=== PATIENT | male | born 1940 | race Hispanic/Latino ===

== ENCOUNTER 2020-01-22 05:28 | Observation (INO) | payer OTHER ==
[2020-01-22] VITALS (18 sets, daily range): BP systolic 98–136; BP diastolic 53–73
[~2020-01-22] VITALS: Ht 165.1 cm; Wt 75.4 kg
[~2020-01-22 05:28] MED LIST: AEC81 PO; ATEN100T PO; CLOP75TA14 PO; DOXA4TAB3 PO; FISH1CAP16 PO; GEMF600T5 PO; GLIP10TA9 PO; GLUC-145 PO; HYDR12.54 PO; METF-446 PO; MULT-660 PO; OMEP20CA12 PO; PANT40TA PO; QUIN40TA19 PO; SIMV40TA59 PO
[2020-01-22] MEDS ORDERED: SODIUM CHLORIDE 0.9% 1000ML 1,000 ML IV ONE (05:59)
[2020-01-22 06:10] LABS: BASOPHILS % (AUTO) 0.4 % (0.0-5.0); EOSINOPHILS % (AUTO) 1.8 % (0.0-8.0); HEMATOCRIT 28.5 % (42-54); LYMPHOCYTES % (AUTO) 19.4 % (21.0-51.0); MEAN CORPUSCULAR HEMOGLOBIN 31.2 pg (27.0-33.0); MEAN CORPUSCULAR HGB CONC 34.4 g/dL (32.0-36.0); MEAN CORPUSCULAR VOLUME 90.8 fL (79-99); MONOCYTES % (AUTO) 8.1 % (3.0-13.0); PLATELET COUNT (AUTO) 168 K/uL (130-400); RED BLOOD CELL COUNT(AUTO) 3.14 MIL/uL (4.50-6.20); RED CELL DISTRIBUTION WIDTH 11.9 % (11.0-15.5); WHITE BLOOD COUNT (AUTO) 7.6 K/uL (4.8-10.8)
[2020-01-22 06:28] LABS: INR 0.98 (0.85-1.15); PARTIAL THROMBOPLASTIN TIME 32.4 SEC (26.3-35.5); PROTHROMBIN TIME 10.6 SEC (9.6-11.6)
[2020-01-22 06:30] LABS: B-TYPE NATRIURETIC PEPTIDE 58 pg/mL (0-100)
[2020-01-22 06:31] LABS: ALBUMIN 2.4 g/dL (3.5-5.0); BILIRUBIN,TOTAL 0.4 mg/dL (0.2-1.0); CREATININE 2.8 mg/dL (0.5-1.5); POTASSIUM 3.6 mmol/L (3.5-5.1); TOTAL PROTEIN, SERUM 5.9 g/dL (6.0-8.3)
[2020-01-22] MEDS ORDERED: OCTREOTIDE ACETATE 500 MCG in SODIUM CHLORIDE 0.9% 97.5 ML IV SCH (07:45)
[2020-01-22] MEDS ORDERED: PANTOPRAZOLE SODIUM 80 MG in NS 100ML IVP SCH (07:45)
[2020-01-22] MEDS ORDERED: EPHEDRINE SULFATE 50 MG/ML AMPULE ONE (13:05)
[2020-01-22] MEDS ORDERED: PHENYLEPHRINE HCL 10 MG/ML 1ML VIAL IV ONE (13:09)
[2020-01-22] MEDS ORDERED: POTASSIUM CHLORIDE 10% ELIXIR 20 MEQ/15 ML UDCUP PO PRN (16:45)
[2020-01-22] MEDS ORDERED: ONDANSETRON HCL 4 MG/2 ML VIAL IVP PRN (16:45)
[2020-01-22] MEDS ORDERED: GLUCAGON 1MG KIT 1 MG ML IM PRN (16:45)
[2020-01-22] MEDS ORDERED: IPRATROPIUM/ALBUTEROL SULFATE 3 ML SOLUTION IH PRN (16:45)
[2020-01-22] MEDS ORDERED: LIDOCAINE HCL-MPF 1% 2ML VIAL IV PRN (16:45)
[2020-01-22] MEDS ORDERED: LACTULOSE 20 GM/30 ML UDCUP PO PRN (16:45)
[2020-01-22] MEDS ORDERED: DEXTROSE 50%-WATER 50 ML DISP.SYRIN IV PRN (16:45)
[2020-01-22] MEDS ORDERED: HYDRALAZINE HCL 20 MG/ML VIAL IV PRN (16:45)
[2020-01-22] MEDS ORDERED: ACETAMINOPHEN-CODEINE 300/30MG TAB PO PRN ×2 (16:45)
[2020-01-22] MEDS ORDERED: POTASSIUM CHLORIDE 20MEQ/100ML 100 ML IV PRN (16:45)
[2020-01-22] MEDS ORDERED: ACETAMINOPHEN 325 MG TAB PO PRN (16:45)
[2020-01-22] MEDS ORDERED: INSULIN HUMULIN R 100 UNIT/ML 3ML ONE (17:18)
[2020-01-22] MEDS: DOXAZOSIN MESYLATE 2 MG TABLET PO SCH (20:16)
[2020-01-22] MEDS: HYDROCHLOROTHIAZIDE 25 MG TABLET PO SCH (20:16)
[2020-01-22] MEDS: QUINAPRIL 40 MG PO SCH (20:16)
[2020-01-22] MEDS: GEMFIBROZIL 600 MG TABLET PO SCH (20:16)
[2020-01-22] MEDS: INSULIN HUMULIN R 100 UNIT/ML 3ML SQ SCH (20:40)
[2020-01-22] MEDS ORDERED: ATENOLOL 50 MG TABLET PO SCH (21:00)
[2020-01-22] MEDS ORDERED: QUINAPRIL HCL 40 MG PO SCH (21:00)
[2020-01-22] MEDS ORDERED: SIMVASTATIN 20 MG TABLET PO SCH (21:00)
[2020-01-22] MEDS ORDERED: NON-FORMULARY MEDICATION 1 EACH (Simvastatin (Zocor) 40 MG) PO SCH (21:00)
[2020-01-22] MEDS ORDERED: NON-FORMULARY MEDICATION 1 EACH (Doxazosin Mesylate 4 MG) PO SCH (21:00)
[2020-01-22] MEDS ORDERED: NON-FORMULARY MEDICATION 1 EACH (Hydrochlorothiazide 12.5 MG) PO SCH (21:00)
[2020-01-22] MEDS ORDERED: NON-FORMULARY MEDICATION 1 EACH (Atenolol 100 MG) PO SCH (21:00)
[2020-01-23 04:00] VITALS: BP 116/49
[2020-01-23 05:25] LABS: HEMATOCRIT 24.7 % (42-54); MEAN CORPUSCULAR HGB CONC 33.6 g/dL (32.0-36.0); MEAN CORPUSCULAR VOLUME 92.2 fL (79-99); PLATELET COUNT (AUTO) 153 K/uL (130-400); RED BLOOD CELL COUNT(AUTO) 2.68 MIL/uL (4.50-6.20); RED CELL DISTRIBUTION WIDTH 11.8 % (11.0-15.5); WHITE BLOOD COUNT (AUTO) 7.5 K/uL (4.8-10.8)
[2020-01-23 05:38] LABS: CREATININE 2.5 mg/dL (0.5-1.5); POTASSIUM 3.2 mmol/L (3.5-5.1)
[2020-01-23] MEDS: INSULIN HUMULIN R 100 UNIT/ML 3ML SQ SCH ×2 (06:02→12:15)
[2020-01-23] MEDS: POTASSIUM CHLORIDE 20 MEQ ERTAB PO PRN ×3 (06:25→12:16)
[2020-01-23 08:16] VITALS: BP 128/63
[2020-01-23] MEDS ORDERED: ASPIRIN 81 MG EC TAB PO SCH (09:00)
[2020-01-23] MEDS: QUINAPRIL 40 MG PO SCH (09:00)
[2020-01-23] MEDS: HYDROCHLOROTHIAZIDE 25 MG TABLET PO SCH (09:00)
[2020-01-23] MEDS: GEMFIBROZIL 600 MG TABLET PO SCH (09:00)
[2020-01-23] MEDS: DOXAZOSIN MESYLATE 2 MG TABLET PO SCH (09:27)
[2020-01-23] MEDS ORDERED: PANT40TA PO (10:21)
[2020-01-23 11:32] VITALS: BP 125/60
[2020-01-30] MEDS ORDERED: DOXA8TAB81 PO (18:18)
[2020-01-30] MEDS ORDERED: GLIP10TA9 PO (18:18)
[2020-01-30] MEDS ORDERED: LEVO5TAB29 PO (18:18)
[2020-01-30] MEDS ORDERED: LEVO25TA54 PO (18:21)
[2020-01-30] MEDS ORDERED: ROSU20TA31 PO (18:21)
[2020-02-01] MEDS ORDERED: PANT40TA PO (16:32)
[2020-02-01] MEDS ORDERED: SUCR1TAB PO (16:32)
== END 2020-01-23 14:30 | disposition home or self-care (01) ==
LOC: EDH 05:28 → EDHIP 07:22 → 3CH 14:16
PROVIDERS: ADMIT Internal Medicine; ATTEND Internal Medicine
DX: K26.4 Chronic or unspecified duodenal ulcer with hemorrhage (principal); K21.0 Gastro-esophageal reflux disease with esophagitis; K29.70 Gastritis, unspecified, without bleeding; R55 Syncope and collapse; E11.22 Type 2 diabetes mellitus with diabetic chronic kidney disease; I12.9 Hypertensive chronic kidney disease with stage 1 through stage 4 chronic kidney disease, or unspecified chronic kidney disease; N18.4 Chronic kidney disease, stage 4 (severe); I25.10 Atherosclerotic heart disease of native coronary artery without angina pectoris; E07.9 Disorder of thyroid, unspecified; Z79.899 Other long term (current) drug therapy; Z79.82 Long term (current) use of aspirin
CPT/HCPCS: 36415 ×2; 43239; 43255; 71045; 80048; 80053; 82270; 82948 ×4; 83880; 84132; 85025; 85027; 85610; 85730; 86850; 86900; 86901; 88305; 88342; 94664; 96365; 96366; 99284; A4222; A4223; A4606; A4620; C9113 ×3; G0378 ×18; J1815 ×2; J2354; J2370; J2704; J3490; J7030 ×2; 96372

== ENCOUNTER → 2021-09-28 | Outpatient (CLI) | payer OTHER ==
[~2021-09-28] MED LIST changes: -AEC81 PO; -CLOP75TA14 PO; -FISH1CAP16 PO; -GEMF600T5 PO; +GEMF600T89 PO; -HYDR12.54 PO; +LEVO25TA54 PO; +LEVO5TAB29 PO; -METF-446 PO; -MULT-660 PO; -OMEP20CA12 PO; -QUIN40TA19 PO; +ROSU20TA31 PO; +SUCR1TAB PO
== END | disposition home or self-care (01) ==
LOC: RAH 11:56
PROVIDERS: ATTEND Internal Medicine
DX: K80.20 Calculus of gallbladder without cholecystitis without obstruction (principal); K57.90 Diverticulosis of intestine, part unspecified, without perforation or abscess without bleeding; N28.1 Cyst of kidney, acquired; K80.80 Other cholelithiasis without obstruction; K40.20 Bilateral inguinal hernia, without obstruction or gangrene, not specified as recurrent
CPT/HCPCS: 74176

== ENCOUNTER → 2023-01-18 | Outpatient (CLI) | payer OTHER ==
[~2023-01-18] MED LIST changes: +AMIO200T44 PO; +APIX2.5T PO; +ASPI-1005 PO; -ATEN100T PO; +ATOR40TA69 PO; +CHOL2000 PO; +DOCU100C33 PO; -DOXA4TAB3 PO; +FERR-82 PO; +FISH1CAP63 PO; +FOLI400T4 PO; -GEMF600T89 PO; -GLUC-145 PO; -LEVO5TAB29 PO; +METO25TA3 PO; -PANT40TA PO; +PANT40TA54 PO; -ROSU20TA31 PO; -SIMV40TA59 PO; -SUCR1TAB PO; +TICA90TA PO
== END | disposition home or self-care (01) ==
LOC: LAB 13:42
PROVIDERS: ATTEND Internal Medicine Cardiovascular Disease
DX: I25.10 Atherosclerotic heart disease of native coronary artery without angina pectoris (principal); R06.00 Dyspnea, unspecified; Z95.5 Presence of coronary angioplasty implant and graft
CPT/HCPCS: 36415; 83880

== ENCOUNTER → 2023-02-17 | Outpatient (CLI) | payer OTHER | END | disposition home or self-care (01) | LOC: SHCH 07:44 | PROVIDERS: ATTEND Internal Medicine Cardiovascular Disease | DX: I08.8 Other rheumatic multiple valve diseases (principal); I27.20 Pulmonary hypertension, unspecified; I11.9 Hypertensive heart disease without heart failure; I25.10 Atherosclerotic heart disease of native coronary artery without angina pectoris; E11.9 Type 2 diabetes mellitus without complications; E78.5 Hyperlipidemia, unspecified; Z95.5 Presence of coronary angioplasty implant and graft | CPT/HCPCS: 93306 ==

== ENCOUNTER → 2023-03-16 | Outpatient (CLI) | payer OTHER ==
[~2023-03-16] MED LIST changes: +ALBUTEROL 0.083% 2.5 MG/3 ML INH IH ONE
== END | disposition home or self-care (01) ==
LOC: RESP 08:38
PROVIDERS: ATTEND Internal Medicine Cardiovascular Disease
DX: R06.00 Dyspnea, unspecified (principal)
CPT/HCPCS: 94060; 94727; 94729

== ENCOUNTER 2023-07-12 06:13 | Day surgery (SDC) | payer OTHER ==
[2023-07-07 10:49] VITALS: BP 138/79; PULSE 90; RESP 18
[2023-07-07 10:52] LABS: BASOPHILS # (AUTO) 0.03 K/uL (0.00-0.20); BASOPHILS % (AUTO) 0.7 % (0.0-5.0); EOSINOPHILS # (AUTO) 0.22 K/uL (0.00-0.70); HEMATOCRIT 36.1 % (42-54); IMMATURE GRANULOCYTE ABSOLUTE 0.02 K/uL (0-1); LYMPHOCYTES # (AUTO) 0.8 K/uL (1.0-4.8); LYMPHOCYTES % (AUTO) 17.6 % (21.0-51.0); MEAN CORPUSCULAR HEMOGLOBIN 33.7 pg (27.0-33.0); MEAN CORPUSCULAR HGB CONC 31.3 g/dL (32.0-36.0); MEAN CORPUSCULAR VOLUME 107.8 fL (79-99); MONOCYTES # (AUTO) 0.4 K/uL (0.1-1.0); NEUTROPHILS % (AUTO) 68.2 % (40.0-77.0); PLATELET COUNT (AUTO) 80 K/uL (130-400); RED BLOOD CELL COUNT(AUTO) 3.35 MIL/uL (4.50-6.20); RED CELL DISTRIBUTION WIDTH 14.6 % (11.0-15.5); WHITE BLOOD COUNT (AUTO) 4.4 K/uL (4.8-10.8)
[2023-07-07 11:01] LABS: CREATININE 3.2 mg/dL (0.5-1.5); POTASSIUM 3.7 mmol/L (3.5-5.1)
[2023-07-07 11:37] LABS: INR 1.03 (0.85-1.15); PROTHROMBIN TIME 11.9 SEC (9.6-11.6)
[2023-07-07 11:39] LABS: PARTIAL THROMBOPLASTIN TIME 33.9 SEC (26.3-35.5)
[~2023-07-12] VITALS: Ht 165.1 cm; Wt 65.1 kg
[2023-07-12] VITALS (10 sets, daily range): BP systolic 126–150; BP diastolic 59–87; PULSE 60–92; RESP 15–18
[~2023-07-12 06:13] MED LIST changes: -ALBUTEROL 0.083% 2.5 MG/3 ML INH IH ONE; -AMIO200T44 PO; -ASPI-1005 PO; +CLOP75TA32 PO; -FERR-82 PO; -LEVO25TA54 PO; +LEVO75TA10 PO; +LIRA0.6P SQ; +LORA10TA7 PO; +METO-391 PO; -METO25TA3 PO; +SACU1TAB7 PO; -TICA90TA PO; +TORS20TA4 PO; +VITA400T9 PO
[2023-07-12] MEDS ORDERED: 0.9%NACL 1000ML 1,000 ML IV ONE (06:31)
[2023-07-12] MEDS ORDERED: LIDOCAINE HCL 1% MDV 50ML VIAL ONE (07:27)
[2023-07-12] MEDS ORDERED: MEPERIDINE-PF 25 MG/ML SYG ONE ×2 (07:27→07:46)
[2023-07-12] MEDS ORDERED: CEFAZOLIN SODIUM 1 GM VIAL ONE (07:28)
[2023-07-12] MEDS ORDERED: IOHEXOL-350 50ML VIAL IV ONE (07:28)
[2023-07-12] MEDS ORDERED: MIDAZOLAM HCL 1 MG/ML 2ML VIAL ONE ×2 (07:28→07:46)
[2023-07-12] MEDS ORDERED: BUPIVACAINE/PF 0.25% 30ML VIAL IJ ONE (07:28)
[2023-07-12] MEDS ORDERED: SODIUM BICARB 50MEQ 50ML VIAL 50 ML ONE (07:31)
[2023-07-12] MEDS ORDERED: BACITRACIN 1 EACH PACKET TP ONE (08:59)
[2023-07-12] MEDS ORDERED: ACETAMINOPHEN WITH CODEINE 1 TAB TAB PO PRN ×2 (09:30)
[2023-07-12] MEDS ORDERED: DEXTROSE 50%-WATER 50 ML DISP.SYRIN IV PRN (09:30)
[2023-07-12] MEDS ORDERED: ONDANSETRON 4MG INJ IV PRN (09:30)
[2023-07-12] MEDS ORDERED: INSULIN HUMULIN R 100 UNIT/ML 3ML SQ SCH (11:30)
== END 2023-07-12 15:10 | disposition home or self-care (01) ==
LOC: DAH 06:13
PROVIDERS: ATTEND Internal Medicine Cardiovascular Disease
DX: I25.5 Ischemic cardiomyopathy (principal); E11.22 Type 2 diabetes mellitus with diabetic chronic kidney disease; I13.2 Hypertensive heart and chronic kidney disease with heart failure and with stage 5 chronic kidney disease, or end stage renal disease; N18.6 End stage renal disease; I50.42 Chronic combined systolic (congestive) and diastolic (congestive) heart failure; I25.10 Atherosclerotic heart disease of native coronary artery without angina pectoris; I25.2 Old myocardial infarction; M19.90 Unspecified osteoarthritis, unspecified site; Z99.2 Dependence on renal dialysis; Z98.890 Other specified postprocedural states; Z95.5 Presence of coronary angioplasty implant and graft; Z82.49 Family history of ischemic heart disease and other diseases of the circulatory system; Z79.01 Long term (current) use of anticoagulants; Z79.899 Other long term (current) drug therapy
CPT/HCPCS: 80048; 85025; 85610; 85730; 36415; 93005; 33249; 82948 ×2; 71045; C1721; C1895 ×2; C1894; J0690; J7030; J3490 ×3; J2250 ×2; J2175 ×2; Q9967; A4215; A4222; A4221; A4663; A4216; A4606; A4223 ×3; 99156; 99157

== ENCOUNTER 2023-12-19 07:19 | Day surgery (SDC) | payer OTHER ==
[2023-12-13 10:25] VITALS: BP 155/87; PULSE 67; RESP 18
[2023-12-13 10:35] LABS: BASOPHILS # (AUTO) 0.03 K/uL (0.00-0.20); BASOPHILS % (AUTO) 0.7 % (0.0-5.0); EOSINOPHILS # (AUTO) 0.17 K/uL (0.00-0.70); EOSINOPHILS % (AUTO) 3.7 % (0.0-8.0); HEMATOCRIT 39.6 % (42-54); IMMATURE GRANULOCYTE ABSOLUTE 0.02 K/uL (0-1); LYMPHOCYTES # (AUTO) 0.9 K/uL (1.0-4.8); LYMPHOCYTES % (AUTO) 19.3 % (21.0-51.0); MEAN CORPUSCULAR HEMOGLOBIN 34.6 pg (27.0-33.0); MEAN CORPUSCULAR HGB CONC 33.6 g/dL (32.0-36.0); MEAN CORPUSCULAR VOLUME 103.1 fL (79-99); MONOCYTES # (AUTO) 0.4 K/uL (0.1-1.0); MONOCYTES % (AUTO) 9.5 % (3.0-13.0); NEUTROPHILS # (AUTO) 3.1 K/uL (1.8-7.7); NEUTROPHILS % (AUTO) 66.4 % (40.0-77.0); PLATELET COUNT (AUTO) 101 K/uL (130-400); RED BLOOD CELL COUNT(AUTO) 3.84 MIL/uL (4.50-6.20); RED CELL DISTRIBUTION WIDTH 12.7 % (11.0-15.5); WHITE BLOOD COUNT (AUTO) 4.6 K/uL (4.8-10.8)
[2023-12-13 10:45] LABS: PROTHROMBIN TIME 11.6 SEC (9.6-11.6)
[2023-12-13 10:46] LABS: PARTIAL THROMBOPLASTIN TIME 35.3 SEC (26.3-35.5)
[2023-12-13 11:14] LABS: POTASSIUM 4.8 mmol/L (3.5-5.1)
[2023-12-19] VITALS (17 sets, daily range): BP systolic 111–144; BP diastolic 55–82; PULSE 57–61; RESP 9–16
[~2023-12-19] VITALS: Ht 165.1 cm; Wt 68.9 kg
[~2023-12-19 07:19] MED LIST changes: -DOCU100C33 PO; +DOCU250C14 PO; -FOLI400T4 PO; +GLUCOSAMINE/CHON PO; -LIRA0.6P SQ; +SITA25TA5 PO; +VITA1CAP50 PO; -VITA400T9 PO; +VITAMIN E PO
[2023-12-19] MEDS ORDERED: LIDOCAINE HCL 1% MDV 50ML VIAL ONE (07:32)
[2023-12-19 08:15] LABS: CREATININE 6.2 mg/dL (0.5-1.5); POTASSIUM 4.8 mmol/L (3.5-5.1)
[2023-12-19] MEDS: 0.9% NACL 500ML IV.SOLN 500 ML IV ONE (08:23)
[2023-12-19] MEDS ORDERED: LIDOCAINE PF 100MG/5ML (2%) SYRINGE 5ML ONE (12:19)
[2023-12-19] MEDS ORDERED: GLYCOPYRROLATE 0.2 MG/ML 5 ML VIAL ONE (12:20)
[2023-12-19] MEDS ORDERED: FENTANYL CITRATE PF 50 MCG/1 ML 2ML VIAL ONE (12:20)
[2023-12-19] MEDS ORDERED: ROCURONIUM BROMIDE 10MG/1ML 5ML VL ONE (12:20)
[2023-12-19] MEDS ORDERED: PROPOFOL 10 MG/ML 20ML VIAL IV ONE (12:20)
[2023-12-19] MEDS ORDERED: MIDAZOLAM HCL 1 MG/ML 2ML VIAL ONE (12:32)
[2023-12-19] MEDS ORDERED: EPHEDRINE SULFATE 50 MG/ML AMPULE ONE (13:36)
[2023-12-19] MEDS: BUPIVACAINE/PF 0.25% 30ML VIAL IJ ONE (13:51)
[2023-12-19] MEDS: CEFAZOLIN SODIUM 2 GM VIAL ONE (13:51)
[2023-12-19] MEDS ORDERED: NEOSTIGMINE METHYLSULFATE 1MG/ML IV ONE (14:19)
== END 2023-12-19 17:05 | disposition home or self-care (01) ==
LOC: DAH 07:19
PROVIDERS: ATTEND Student in an Organized Health Care Education/Training Program
DX: E11.22 Type 2 diabetes mellitus with diabetic chronic kidney disease (principal); I13.11 Hypertensive heart and chronic kidney disease without heart failure, with stage 5 chronic kidney disease, or end stage renal disease; N18.6 End stage renal disease; K21.9 Gastro-esophageal reflux disease without esophagitis; Z79.899 Other long term (current) drug therapy; Z95.5 Presence of coronary angioplasty implant and graft; Z82.49 Family history of ischemic heart disease and other diseases of the circulatory system; Z98.890 Other specified postprocedural states; Z99.2 Dependence on renal dialysis
CPT/HCPCS: 80048 ×2; 85025; 85610; 85730; 86850 ×2; 86900 ×2; 86901 ×2; 86870 ×2; 36415 ×2; 93005; 36821; 82948 ×2; A6260; A4663; J7040; J3010; J0665; J3490 ×3; J2001; J2250; J2704; J2710; J1644; J0690; A4649 ×2; C1713 ×2; A4215; A4223; A4222; A4221; A4600; G0168

== ENCOUNTER → 2024-01-28 | Outpatient (CLI) | payer OTHER | LOC: SHCH 12:35 | PROVIDERS: ATTEND Internal Medicine Cardiovascular Disease | DX: I48.0 Paroxysmal atrial fibrillation (principal) | CPT/HCPCS: 93306 ==

== ENCOUNTER 2024-02-14 10:06 | Emergency (ER) | payer OTHER ==
[~2024-02-14] VITALS: Ht 167.6 cm; Wt 72.1 kg
[2024-02-14 11:03] LABS: BASOPHILS # (AUTO) 0.03 K/uL (0.00-0.20); BASOPHILS % (AUTO) 0.5 % (0.0-5.0); EOSINOPHILS # (AUTO) 0.22 K/uL (0.00-0.70); EOSINOPHILS % (AUTO) 3.7 % (0.0-8.0); HEMATOCRIT 37.7 % (42-54); IMMATURE GRANULOCYTE ABSOLUTE 0.01 K/uL (0-1); LYMPHOCYTES # (AUTO) 1.7 K/uL (1.0-4.8); MEAN CORPUSCULAR HEMOGLOBIN 33.2 pg (27.0-33.0); MEAN CORPUSCULAR HGB CONC 33.2 g/dL (32.0-36.0); MEAN CORPUSCULAR VOLUME 100.3 fL (79-99); MONOCYTES # (AUTO) 0.6 K/uL (0.1-1.0); MONOCYTES % (AUTO) 10.7 % (3.0-13.0); NEUTROPHILS # (AUTO) 3.3 K/uL (1.8-7.7); NEUTROPHILS % (AUTO) 55.9 % (40.0-77.0); PLATELET COUNT (AUTO) 104 K/uL (130-400); RED BLOOD CELL COUNT(AUTO) 3.76 MIL/uL (4.50-6.20); RED CELL DISTRIBUTION WIDTH 13.3 % (11.0-15.5); WHITE BLOOD COUNT (AUTO) 5.9 K/uL (4.8-10.8)
[2024-02-14 11:10] LABS: CREATININE 3.7 mg/dL (0.5-1.3); POTASSIUM 4.2 mmol/L (3.5-5.1)
[2024-02-14 11:15] LABS: ALBUMIN 3.7 g/dL (3.5-5.0); BILIRUBIN,TOTAL 0.7 mg/dL (0.2-1.0); TOTAL PROTEIN, SERUM 7.8 g/dL (6.0-8.3)
[2024-02-14 12:34] VITALS: BP 157/64; PULSE 64; RESP 16; O2SAT 98
[2024-02-14] MEDS ORDERED: MECL-302 PO (12:54)
== END 2024-02-14 13:05 | disposition home or self-care (01) ==
LOC: EDH 10:06
DX: I12.0 Hypertensive chronic kidney disease with stage 5 chronic kidney disease or end stage renal disease (principal); E11.22 Type 2 diabetes mellitus with diabetic chronic kidney disease; N18.6 End stage renal disease; H81.10 Benign paroxysmal vertigo, unspecified ear; E78.00 Pure hypercholesterolemia, unspecified; I48.91 Unspecified atrial fibrillation; I25.2 Old myocardial infarction; Z79.01 Long term (current) use of anticoagulants; Z99.2 Dependence on renal dialysis; Z79.02 Long term (current) use of antithrombotics/antiplatelets; Z79.84 Long term (current) use of oral hypoglycemic drugs; Z79.899 Other long term (current) drug therapy; Z95.5 Presence of coronary angioplasty implant and graft; Z95.810 Presence of automatic (implantable) cardiac defibrillator
CPT/HCPCS: 36415; 71045; 80053; 82948; 84484; 85025; 93005

== ENCOUNTER → 2024-02-20 | Outpatient (CLI) | payer OTHER ==
[~2024-02-20] MED LIST changes: +MECL-302 PO
[2024-02-20 09:27] LABS: INR 0.95 (0.85-1.15); PROTHROMBIN TIME 11.3 SEC (9.6-11.6)
[2024-02-20 09:29] LABS: PARTIAL THROMBOPLASTIN TIME 32.6 SEC (26.3-35.5)
== END | disposition home or self-care (01) ==
LOC: RAH 08:40
PROVIDERS: ATTEND Student in an Organized Health Care Education/Training Program
DX: N18.6 End stage renal disease (principal); L76.34 Postprocedural seroma of skin and subcutaneous tissue following other procedure
CPT/HCPCS: 36415; 76882; 85610; 85730

== ENCOUNTER 2024-04-20 07:18 | Day surgery (SDC) | payer OTHER ==
[2024-04-17 11:04] LABS: INR <= 0.93 (0.85-1.15); PROTHROMBIN TIME 10.9 SEC (9.6-11.6)
[2024-04-17 11:05] LABS: PARTIAL THROMBOPLASTIN TIME 30.2 SEC (26.3-35.5)
[2024-04-17 11:33] VITALS: BP 151/90; PULSE 77; RESP 18
[2024-04-17 11:52] LABS: BASOPHILS # (AUTO) 0.04 K/uL (0.00-0.20); BASOPHILS % (AUTO) 0.7 % (0.0-5.0); EOSINOPHILS # (AUTO) 0.13 K/uL (0.00-0.70); EOSINOPHILS % (AUTO) 2.3 % (0.0-8.0); HEMATOCRIT 38.6 % (42-54); IMMATURE GRANULOCYTE ABSOLUTE 0.01 K/uL (0-1); LYMPHOCYTES # (AUTO) 1.1 K/uL (1.0-4.8); LYMPHOCYTES % (AUTO) 19.9 % (21.0-51.0); MEAN CORPUSCULAR HEMOGLOBIN 33.8 pg (27.0-33.0); MEAN CORPUSCULAR HGB CONC 32.9 g/dL (32.0-36.0); MEAN CORPUSCULAR VOLUME 102.7 fL (79-99); MONOCYTES # (AUTO) 0.6 K/uL (0.1-1.0); MONOCYTES % (AUTO) 10.1 % (3.0-13.0); NEUTROPHILS # (AUTO) 3.8 K/uL (1.8-7.7); NEUTROPHILS % (AUTO) 66.8 % (40.0-77.0); PLATELET COUNT (AUTO) 108 K/uL (130-400); RED BLOOD CELL COUNT(AUTO) 3.76 MIL/uL (4.50-6.20); RED CELL DISTRIBUTION WIDTH 12.9 % (11.0-15.5); WHITE BLOOD COUNT (AUTO) 5.7 K/uL (4.8-10.8)
[2024-04-17 12:09] LABS: ALBUMIN 3.4 g/dL (3.5-5.0); BILIRUBIN,TOTAL 0.5 mg/dL (0.2-1.0); CREATININE 4.3 mg/dL (0.5-1.3); POTASSIUM 4.5 mmol/L (3.5-5.1); TOTAL PROTEIN, SERUM 7.9 g/dL (6.0-8.3)
[~2024-04-20] VITALS: Ht 165.1 cm; Wt 70.2 kg
[2024-04-20] VITALS (13 sets, daily range): BP systolic 114–147; BP diastolic 50–81; PULSE 63–86; RESP 14–18
[~2024-04-20 07:18] MED LIST changes: +DOCU100C33 PO; -DOCU250C14 PO; +GLUC1TAB22 PO; -GLUCOSAMINE/CHON PO; +LEVO50CA4 PO; -LEVO75TA10 PO; -MECL-302 PO; +VITA-348 PO; -VITAMIN E PO
[2024-04-20] MEDS ORDERED: LIDOCAINE HCL 1% 20 ML VIAL ONE (07:59)
[2024-04-20] MEDS ORDERED: BUPIVACAINE/PF 0.25% 30ML VIAL IJ ONE (07:59)
[2024-04-20 08:03] LABS: CREATININE 3.3 mg/dL (0.5-1.3); POTASSIUM 3.7 mmol/L (3.5-5.1)
[2024-04-20] MEDS ORDERED: MIDAZOLAM HCL 1 MG/ML 2ML VIAL ONE (09:37)
[2024-04-20] MEDS ORDERED: LIDOCAINE PF 100MG/5ML (2%) SYRINGE 5ML ONE (09:38)
[2024-04-20] MEDS ORDERED: PROPOFOL 10 MG/ML 20ML VIAL IV ONE (09:39)
[2024-04-20] MEDS ORDERED: FENTANYL CITRATE PF 50 MCG/1 ML 2ML VIAL ONE (09:39)
[2024-04-20] MEDS ORDERED: ROCURONIUM BROMIDE 10MG/1ML 5ML VL ONE (09:39)
[2024-04-20] MEDS ORDERED: EPHEDRINE SULFATE 50 MG/ML AMPULE ONE (09:45)
[2024-04-20] MEDS: CEFAZOLIN SODIUM 2 GM VIAL ONE (09:59)
[2024-04-20] MEDS: 0.9%NACL 1000ML 1,000 ML IV ONE (09:59)
[2024-04-20] MEDS ORDERED: PHENYLEPHRINE HCL 10 MG/ML 1ML VIAL IV ONE (10:04)
[2024-04-20] MEDS ORDERED: CEFAZOLIN SODIUM 1 GM VIAL ONE (10:23)
[2024-04-20] MEDS ORDERED: DEXAMETHASONE SOD PHOSPHATE 10MG/ML 1ML VIAL ONE (10:31)
[2024-04-20] MEDS ORDERED: ONDANSETRON 4MG INJ ONE (10:32)
[2024-04-20] MEDS: HEPARIN 5,000 UNIT VIAL IRRIG ONE (10:49)
[2024-04-20] MEDS ORDERED: GLYCOPYRROLATE 0.2 MG/ML 5 ML VIAL ONE (12:11)
[2024-04-20] MEDS ORDERED: PROTAMINE SULFATE 10 MG/ML 5 ML VIAL ONE (12:11)
[2024-04-20] MEDS ORDERED: NEOSTIGMINE METHYLSULFATE 1MG/ML IV ONE (12:11)
[2024-04-20] MEDS: MEPERIDINE-PF 25 MG/ML SYG ONE (13:01)
== END 2024-04-20 14:00 | disposition home or self-care (01) ==
LOC: DAH 07:18
PROVIDERS: ATTEND Student in an Organized Health Care Education/Training Program
DX: I13.11 Hypertensive heart and chronic kidney disease without heart failure, with stage 5 chronic kidney disease, or end stage renal disease (principal); E11.22 Type 2 diabetes mellitus with diabetic chronic kidney disease; N18.6 End stage renal disease; D64.9 Anemia, unspecified; I25.10 Atherosclerotic heart disease of native coronary artery without angina pectoris; Z88.8 Allergy status to other drugs, medicaments and biological substances; Z82.5 Family history of asthma and other chronic lower respiratory diseases; Z83.3 Family history of diabetes mellitus; Z82.49 Family history of ischemic heart disease and other diseases of the circulatory system; Z79.899 Other long term (current) drug therapy; Z95.0 Presence of cardiac pacemaker; Z98.890 Other specified postprocedural states
CPT/HCPCS: 80053; 85025; 85610; 85730; 86850 ×2; 86900 ×2; 86901 ×2; 86870 ×2; 36415 ×2; 36825; 80048; 82948 ×2; 93005; A6260; A4663; J7030 ×2; C1768; J3010; J0690 ×2; J1100; J3490 ×3; J2001; J2720; J2250; J2704; J2405; J2710; J1644 ×2; J2175; J2371; A4649 ×3; C1713 ×2; A4215; A4223; A4213; A4222; A4221; A4600; G0168; J0665

== ENCOUNTER 2024-10-25 05:56 | Day surgery (SDC) | payer OTHER ==
[2024-10-23 11:43] VITALS: BP 123/61; PULSE 56; RESP 16; TEMP 97.5
[2024-10-23 11:48] LABS: BASOPHILS # (AUTO) 0.03 K/uL (0.00-0.20); BASOPHILS % (AUTO) 0.5 % (0.0-5.0); EOSINOPHILS # (AUTO) 0.05 K/uL (0.00-0.70); EOSINOPHILS % (AUTO) 0.9 % (0.0-8.0); HEMATOCRIT 38.5 % (42-54); IMMATURE GRANULOCYTE ABSOLUTE 0.02 K/uL (0-1); LYMPHOCYTES # (AUTO) 0.6 K/uL (1.0-4.8); LYMPHOCYTES % (AUTO) 9.5 % (21.0-51.0); MEAN CORPUSCULAR HEMOGLOBIN 34.3 pg (27.0-33.0); MEAN CORPUSCULAR HGB CONC 31.4 g/dL (32.0-36.0); MEAN CORPUSCULAR VOLUME 109.1 fL (79-99); MONOCYTES # (AUTO) 0.5 K/uL (0.1-1.0); NEUTROPHILS # (AUTO) 4.6 K/uL (1.8-7.7); NEUTROPHILS % (AUTO) 79.8 % (40.0-77.0); PLATELET COUNT (AUTO) 67 K/uL (130-400); RED BLOOD CELL COUNT(AUTO) 3.53 MIL/uL (4.50-6.20); RED CELL DISTRIBUTION WIDTH 14.7 % (11.0-15.5); WHITE BLOOD COUNT (AUTO) 5.8 K/uL (4.8-10.8)
[2024-10-23 11:56] LABS: CREATININE 5.4 mg/dL (0.5-1.3); POTASSIUM 4.2 mmol/L (3.5-5.1)
[2024-10-23 12:04] LABS: INR 2.86 (0.85-1.15); PROTHROMBIN TIME 28.9 SEC (9.6-11.6)
[2024-10-23 12:05] LABS: PARTIAL THROMBOPLASTIN TIME 38.8 SEC (26.3-35.5)
[2024-10-23 13:03] LABS: PLATELET MORPHOLOGY COMMENT DECREASED
--- NOTE | 2024-10-24 15:41 | NUR ---
RE: LABS REPORTED CBC RESULTS TO DR GIRALDO, NO NEW ORDERS RECEIVED.
[~2024-10-25] VITALS: Ht 165.1 cm; Wt 69.3 kg
[2024-10-25] VITALS (7 sets, daily range): BP systolic 80–120; BP diastolic 44–57; PULSE 64–82; RESP 14–18; TEMP 97.5–97.7
[~2024-10-25 05:56] MED LIST changes: -APIX2.5T PO; -CHOL2000 PO; -DOCU100C33 PO; +DRON400T7 PO; +ERGO2000 PO; -FISH1CAP63 PO; +GLIP10TA16 PO; -GLIP10TA9 PO; +GLUC100019 PO; -GLUC1TAB22 PO; -LEVO50CA4 PO; +LEVO75TA10 PO; +LOSA50TA64 PO; +OMEG100033 PO; -SACU1TAB7 PO; -TORS20TA4 PO; -VITA-348 PO; +WARF-57 PO
[2024-10-25] MEDS ORDERED: 0.9%NACL 1000ML 1,000 ML IV SCH (06:30)
[2024-10-25] MEDS ORDERED: LIDOCAINE PF 100MG/5ML (2%) SYRINGE 5ML ONE (07:02)
[2024-10-25] MEDS ORDERED: proPOFol 10 MG/ML 20ML VIAL IV ONE (07:02)
[2024-10-25] MEDS ORDERED: phenylEPHRINE HCL 10 MG/ML 1ML VIAL IV ONE (07:03)
--- NOTE | 2024-10-25 07:12 | NUR ---
PT SYNCHRONIZED CARDIOVERTED [address] KRISTAL LEE NAD
--- NOTE | 2024-10-25 07:30 | NUR ---
PT AWAKE NAD SPEAKING WITH STAFF
--- NOTE | 2024-10-25 08:50 | EKG ---
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1940 Requested By: BINU RIBERA Order Number: [id number] Reading MD: Augusto Christy Measurements Intervals Wing Rate: 70 P: 28 SD: 273 QRS: 28 QRSD: 98 T: 167 QT: 428 QTc: 464 Interpretive Statements Sinus rhythm Prolonged SD interval Inferior infarct, old Nonspecific T abnormalities, lateral leads Compared to ECG 10/25/2024 07:22:19 First degree AV block now present Myocardial infarct finding now present Atrial fibrillation no longer present Ventricular-paced complex(es) or rhythm no longer present T-wave abnormality still present Electronically Signed On 10-25-2024 20:17:49 SUPERVISOR STENO POOL by Augusto Christy Please click the below link to view image of tracing.
--- NOTE | 2024-10-25 08:50 | EKG ---
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 Integration Developer: [id number] : 1940 Requested By: BINU RIBERA Order Number: [id number] Reading MD: Augusto Christy Measurements Intervals [place] Rate: 69 P: 0 SC: 0 QRS: 38 QRSD: 100 T: 164 QT: 438 QTc: 469 Interpretive Statements V-paced complexes Nonspecific T abnormalities, lateral leads Compared to ECG 04/20/2024 07:37:03 T-wave abnormality now present Atrial-paced complex(es) or rhythm no longer present Myocardial infarct finding no longer present Electronically Signed On 10-25-2024 20:17:45 TOPOGRAPHY TECHNICIAN by Augusto Christy Please click the below link to view image of tracing.
--- NOTE | 2024-10-25 10:35 | PRN ---
Procedure: SHC Cardioversion Procedure Note DATE OF PROCEDURE: Oct 25, 2024 PROCEDURE PERFORMED: DIRECT-CURRENT CARDIOVERSION PREFORMING PHYSICIAN: Shannan Wheeler MD INDICATION: Persistent atrial fibrillation PROCEDURE NOTE: After informed consent was obtained, and timeout procedure performed, as well as verification of resuscitative equipment availability, the patient was sedated by anesthesia. When adequate sedation was obtained the patient underwent direct- current cardioversion with [200] J of synchronized, biphasic, direct-current energy to sinus rhythm. The patient tolerated the procedure well. There were no immediate complications noted. COMPLICATIONS: None, the patient tolerated the procedure well and there were no immediate complications noted. He persisted in [sinus rhythm] for several minutes of monitoring at bedside and this was confirmed on twelve-lead EKG. DISCHARGE RECOMMENDATIONS: [Continue home medications.] Follow-up at [facility] within 1 week. SHANNAN MERCEDES MD Oct 25, 2024 10:35
== END 2024-10-25 08:35 | disposition home or self-care (01) ==
LOC: DAH 05:56
PROVIDERS: ATTEND Student in an Organized Health Care Education/Training Program
DX: I48.19 Other persistent atrial fibrillation (principal); I25.10 Atherosclerotic heart disease of native coronary artery without angina pectoris; I25.5 Ischemic cardiomyopathy; I12.0 Hypertensive chronic kidney disease with stage 5 chronic kidney disease or end stage renal disease; E11.22 Type 2 diabetes mellitus with diabetic chronic kidney disease; N18.6 End stage renal disease; E78.5 Hyperlipidemia, unspecified; Z79.01 Long term (current) use of anticoagulants; Z79.02 Long term (current) use of antithrombotics/antiplatelets; Z82.5 Family history of asthma and other chronic lower respiratory diseases; Z82.49 Family history of ischemic heart disease and other diseases of the circulatory system; Z83.3 Family history of diabetes mellitus; Z88.8 Allergy status to other drugs, medicaments and biological substances; Z79.899 Other long term (current) drug therapy; Z98.890 Other specified postprocedural states
CPT/HCPCS: 80048; 85025; 85610; 85730; 36415; 92960; 82948; 93005 ×2; A4223 ×3; J2003; J2704; J2371; A4620; A4222; A4221; A4663; A4216; A4606; J3490

== ENCOUNTER → 2024-11-22 | Outpatient (CLI) | payer OTHER ==
--- NOTE | 2024-11-27 10:30 | HMCSR ---
APPROVED REPORT EXAM: Two-dimensional and M-mode echocardiogram with Doppler and color Doppler. INDICATION ICD: R01.1 Cardiac murmur, unspecified 2D Dimensions RVDd5.8 cmLVEF(%)30.0 (>50%)LVED Vol(simp.)140.0 mL IVSd1.3 (0.7-1.1cm)FS(%)18 %LVES Vol(simp.)95.0 mL LVDd4.7 (3.8-5.6cm)LA (2D)5.3 (1.6-4.0cm)LVEF(%, simp.)32 % PWd1.3 (0.7-1.1cm)Ao Root(2D)3.3 (2.0-3.7cm)LA ESV INDEX (BP)58.15 mL/m2 LVDs3.8 (2.5-4.0cm)LVOT diam2.0 (1.8-2.4cm) IVC diam2.6 cm Aortic Valve AoV Vmax1.7 m/Bobo Peak GR11.3 mmHgLVOT Vmax0.8 m/s AoV VTI0.4 mAo Mean GR7.0 mmHgLVOT VTI0.17 m EFE (VMAX)1.4 cm2AVA (VTI) 1.4 cm2 Mitral Valve MV E Vmax97.7 cm/sDECEL Zvnj410 msMR NBK238 cm2 MV A Vmax40.1 cm/sP 1/2 T53 ms E/A ratio2.4MVA (PHT)4.2 cm2 MR Max PG83 mmHgMR Mean PG55 mmHg TDI E/E' Gveayr38.4E/E' Fidcchv22.5 Pulmonary Valve PV Vmax0.8 m/sPV VTI0.19 mPV Mean GR1 mmHg PV Peak GR2.7 mmHgPI End [place] 1.4 cm/s Tricuspid Valve TR Vmax3.1 m/sRAP (EST) 15 iaZvYZWL90.7 mmHg TR Peak GR37.7 mmHg Left Ventricle The left ventricle is mildly dilated. There is mild concentric left ventricular hypertrophy. LVEF is 30-35%. No left ventricle thrombus noted on this study. Grade 3 diastolic dysfunction. Right Ventricle The right ventricle is severely dilated. Right ventricular systolic function is mildly to moderately reduced. Atria The left atrium is severely dilated. The right atrium is severely dilated. Aortic Valve Aortic valve is trileaflet. Trace aortic regurgitation. Calculated aortic valve area is 1.4 cm2 with maximum pressure gradient of 11.3 mmHg and mean pressure gradient of 7 mmHg. Mitral Valve Mitral valve leaflets are mildly sclerotic but open well. Mitral regurgitation is mild. There is no m itral valve stenosis. Tricuspid Valve The tricuspid valve leaflets appear normal. There is severe tricuspid regurgitation. Right ventricula r systolic pressure is estimated at 50-60 mmHg. Pulmonic Valve The pulmonic valve leaflets are thin and pliable; valve motion is normal. There is mild valvular regu rgitation. Great Vessels The aortic root is normal in size. IVC is dilated and collapses <50% with inspiration. Pericardium No pericardial effusion. Conclusion The left ventricle is mildly dilated. There is mild concentric left ventricular hypertrophy. LVEF is 30-35%. Grade 3 diastolic dysfunction. The right ventricle is severely dilated. Right ventricular systolic function is mildly to moderately reduced. The left atrium is severely dilated. The right atrium is severely dilated. Aortic valve is trileaflet. Aortic valve leaflets are sclerotic. Trace aortic regurgitation. Trace aortic regurgitation. Calculated aortic valve area is 1.4 cm2 with maximum pressure gradient of 11.3 mmHg and mean pressure gradient of 7 mmHg. Mitral valve leaflets are mildly sclerotic but open well. Mitral regurgitation is mild. There is severe tricuspid regurgitation. Right ventricular systolic pressure is estimated at 50-60 mmHg. There is mild valvular regurgitation. The aortic root is normal in size. IVC is dilated and collapses <50% with inspiration. No pericardial effusion.
== END | disposition home or self-care (01) ==
LOC: SHCH 11:06
PROVIDERS: ATTEND Internal Medicine Cardiovascular Disease
DX: I08.8 Other rheumatic multiple valve diseases (principal); R01.1 Cardiac murmur, unspecified
CPT/HCPCS: 93306

== ENCOUNTER → 2024-11-27 | Outpatient (CLI) | payer OTHER ==
[2024-11-27] MEDS: REGADENOSON 0.4 MG/5 ML PF SYG IVP ONE (10:33)
--- NOTE | 2024-11-29 08:25 | HMCSR ---
APPROVED REPORT Height: 5 ft 5in Weight: 156 lbs TEST INDICATIONS Dyspnea The imaging protocol used to acquire images was Rest Tc-99m/stress Tc-99m 1 day Consent: The procedure was explained and understood by the patient. Informerd consent was witnessed Ron Ramos RN First, low dose rest was performed then high dose stress. RESTING DATA: The resting ekg shows: Atrial Fibrillation Rest SPECT myocardial perfusion imaging was performed in supine position 60 minutes following the int ravenous injection of 11.9 mCi of Tc-99 Sestamibi. Time of rest injection: 08:15: Date: 11/27/2024 Time of rest imagin:15: Date: 11/27/2024 PHARMACOLOGIC STRESS: Pharmacologic stress test was performed by injecting regadenoson 0.4 mg IV push followed by the intra venous injection of 31.3 mCi of Tc-99 Sestamibi. Time of stress injection: 09:40: Date: 11/27/2024 Time of stress imagin:54: Date: 11/27/2024 Heart Rate at time of stress injection: 63 bpm. Gated Stress SPECT was performed 74 minutes after stress injection. The images were gated to evaluate regional wall motion and calculate left ventricular ejection fracti on. STRESS DETAILS Reason for Termination: Infusion complete Stress Symptoms: Dyspnea Max HR Achieved: 68 bpm % of APMHR Achieved: 50 Max Blood Pressure: 120/63 mmHg Stress ECG: Atrial Fibrillation LEFT VENTRICLE Size: The left ventricular size is mildly to moderately dilated. Systolic Function:The left ventricular systolic function is moderately to severely decreased. Wall Motion: Extensive anterior apical akinesis to dyskinesis. The left ventricular ejection fraction was calculated to be 38%.TID = . LV PERFUSION Large zones of fixed defects, involving the anterior apical, inferior apical, and septal regions. No reversible ischemic defects identified. Conclusion The left ventricular size is mildly to moderately dilated. The left ventricular systolic function is moderately to severely decreased. Extensive anterior apical akinesis to dyskinesis. Large zones of fixed defects, involving the anterior apical, inferior apical, and septal regions. No reversible ischemic defects identified. The left ventricular ejection fraction was calculated to be 38%.
== END | disposition home or self-care (01) ==
LOC: SHCH 07:50
PROVIDERS: ATTEND Internal Medicine Cardiovascular Disease
DX: I51.7 Cardiomegaly (principal); I25.10 Atherosclerotic heart disease of native coronary artery without angina pectoris; R06.00 Dyspnea, unspecified
CPT/HCPCS: 78452; 93017; J2785; A9500 ×2

== ENCOUNTER → 2025-01-01 | Outpatient (CLI) | payer OTHER ==
[~2025-01-01] VITALS: Ht 165.1 cm; Wt 68.9 kg
[~2025-01-01] MED LIST changes: +CHOL200074 PO; +STOOL SOFTENER PO; +VITA-348 PO; +WARF3TAB59 PO
[2025-01-01 10:15] VITALS: BP 140/73; PULSE 78; RESP 14; TEMP 97.6
[2025-01-01 10:20] LABS: BASOPHILS # (AUTO) 0.04 K/uL (0.00-0.20); BASOPHILS % (AUTO) 0.9 % (0.0-5.0); EOSINOPHILS # (AUTO) 0.04 K/uL (0.00-0.70); EOSINOPHILS % (AUTO) 0.9 % (0.0-8.0); HEMATOCRIT 39.5 % (42-54); IMMATURE GRANULOCYTE ABSOLUTE 0.01 K/uL (0-1); LYMPHOCYTES # (AUTO) 0.5 K/uL (1.0-4.8); LYMPHOCYTES % (AUTO) 9.7 % (21.0-51.0); MEAN CORPUSCULAR HEMOGLOBIN 35.1 pg (27.0-33.0); MEAN CORPUSCULAR HGB CONC 32.4 g/dL (32.0-36.0); MEAN CORPUSCULAR VOLUME 108.2 fL (79-99); MONOCYTES # (AUTO) 0.5 K/uL (0.1-1.0); MONOCYTES % (AUTO) 11.4 % (3.0-13.0); NEUTROPHILS # (AUTO) 3.6 K/uL (1.8-7.7); NEUTROPHILS % (AUTO) 76.9 % (40.0-77.0); PLATELET COUNT (AUTO) 56 K/uL (130-400); RED BLOOD CELL COUNT(AUTO) 3.65 MIL/uL (4.50-6.20); RED CELL DISTRIBUTION WIDTH 15.6 % (11.0-15.5); WHITE BLOOD COUNT (AUTO) 4.7 K/uL (4.8-10.8)
[2025-01-01 10:34] LABS: CREATININE 4.3 mg/dL (0.5-1.3); POTASSIUM 3.5 mmol/L (3.5-5.1)
[2025-01-01 10:54] LABS: PLATELET MORPHOLOGY COMMENT DECREASED
[2025-01-01 10:56] LABS: INR 2.1 (0.85-1.15); PROTHROMBIN TIME 20.7 SEC (9.6-11.6)
[2025-01-01 10:57] LABS: PARTIAL THROMBOPLASTIN TIME 37.6 SEC (26.3-35.5)
--- NOTE | 2025-01-01 12:07 | EKG ---
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1940 Requested By: MERRY CAMERON Order Number: [id number] Reading MD: J Luis Fuentes Measurements Intervals Geff Rate: 63 P: 0 DC: 0 QRS: 65 QRSD: 95 T: 153 QT: 455 QTc: 465 Interpretive Statements Atrial flutter with predominant 4:1 AV block Inferior infarct, old Probable anterolateral infarct, recent Compared to ECG 10/25/2024 08:11:35 AV block, advanced (high-grade) now present Sinus rhythm no longer present First degree AV block no longer present T-wave abnormality no longer present Myocardial infarct finding still present Electronically Signed On 01-02-2025 07:39:37 PAPER CONTROL CLERK by J Luis Fuentes Please click the below link to view image of tracing.
--- NOTE | 2025-01-02 10:42 | NUR ---
REPORT REPORTED COAGS/PLATELETS TO DR CAMERON. RECEIVED ORDERS TO REPEAT CBC AND INSTRUCT PT NOT TO HOLD WARFARIN. PT NOTIFIED
--- NOTE | 2025-01-02 14:54 | NUR ---
f/u received call from dr murphy to cancel procedure for tomorrow. he is going to consult with primary and then they will follow up with pt in reference to platelets. pt notified and voiced understanding.
== END ==
LOC: EDSTATUS 09:00 → DAH 09:10
PROVIDERS: ATTEND Internal Medicine Cardiovascular Disease
DX: Z01.818 Encounter for other preprocedural examination (principal); I25.10 Atherosclerotic heart disease of native coronary artery without angina pectoris; I48.0 Paroxysmal atrial fibrillation; I12.9 Hypertensive chronic kidney disease with stage 1 through stage 4 chronic kidney disease, or unspecified chronic kidney disease; E11.22 Type 2 diabetes mellitus with diabetic chronic kidney disease; N18.6 End stage renal disease; E78.5 Hyperlipidemia, unspecified; Z79.890 Hormone replacement therapy; M19.90 Unspecified osteoarthritis, unspecified site; Z82.49 Family history of ischemic heart disease and other diseases of the circulatory system; Z88.8 Allergy status to other drugs, medicaments and biological substances; Z79.899 Other long term (current) drug therapy; Z98.890 Other specified postprocedural states
CPT/HCPCS: 36415; 80048; 85025; 85610; 85730; 93005

== ENCOUNTER → 2025-03-12 | Outpatient (CLI) | payer OTHER ==
[~2025-03-12] MED LIST changes: -DRON400T7 PO; -ERGO2000 PO; -WARF-57 PO
--- NOTE | 2025-03-12 08:48 | HMCIMG ---
Exam Type: US ABDOMINAL COMPLETE Clinical Information: elevated bilirubin Comparison: None Findings: The liver shows coarse and this could represent chronic liver disease. There is ascites.. The liver measures less than 16 cm in length. Doppler evaluation shows patent portal and hepatic veins. The gallbladder shows cholelithiasis. Mildly thickened gallbladder wall could represent chronic cholecystitis. The gallbladder wall thickness is 4 mm. No bile duct dilatation is noted. The common bile duct measures 6 mm. The right kidney measures 10.7 x 4.7 cm. The left kidney measures 9.3 x 3.7 cm. The kidneys are hyperechoic consistent with renal parenchymal disease. Multiple simple renal cysts are seen bilaterally. No hydronephrosis or renal calculi are seen. There are no renal masses. The pancreas is suboptimally visualized. The spleen is unremarkable. The aorta and inferior vena cava show no significant abnormalities. IMPRESSION: Findings which may represent liver parenchymal disease. Possible chronic cholecystitis.
== END | disposition home or self-care (01) ==
LOC: RAH 07:24
PROVIDERS: ATTEND Internal Medicine
DX: N28.1 Cyst of kidney, acquired (principal); K80.20 Calculus of gallbladder without cholecystitis without obstruction; K82.8 Other specified diseases of gallbladder; R18.8 Other ascites; R17 Unspecified jaundice
CPT/HCPCS: 76700

== ENCOUNTER → 2025-04-11 | Outpatient (CLI) | payer OTHER ==
[2025-04-11 08:22] LABS: BASOPHILS # (AUTO) 0.03 K/uL (0.00-0.20); BASOPHILS % (AUTO) 0.6 % (0.0-5.0); EOSINOPHILS # (AUTO) 0.09 K/uL (0.00-0.70); EOSINOPHILS % (AUTO) 1.9 % (0.0-8.0); HEMATOCRIT 33.9 % (42-54); IMMATURE GRANULOCYTE ABSOLUTE 0.02 K/uL (0-1); LYMPHOCYTES # (AUTO) 0.6 K/uL (1.0-4.8); LYMPHOCYTES % (AUTO) 12.3 % (21.0-51.0); MEAN CORPUSCULAR HEMOGLOBIN 35.2 pg (27.0-33.0); MEAN CORPUSCULAR HGB CONC 32.7 g/dL (32.0-36.0); MEAN CORPUSCULAR VOLUME 107.6 fL (79-99); MONOCYTES # (AUTO) 0.6 K/uL (0.1-1.0); MONOCYTES % (AUTO) 13.6 % (3.0-13.0); NEUTROPHILS # (AUTO) 3.4 K/uL (1.8-7.7); NEUTROPHILS % (AUTO) 71.2 % (40.0-77.0); PLATELET COUNT (AUTO) 96 K/uL (130-400); RED BLOOD CELL COUNT(AUTO) 3.15 MIL/uL (4.50-6.20); RED CELL DISTRIBUTION WIDTH 14.9 % (11.0-15.5); WHITE BLOOD COUNT (AUTO) 4.7 K/uL (4.8-10.8)
[2025-04-11 08:37] LABS: ALBUMIN 2.7 g/dL (3.5-5.0); BILIRUBIN,TOTAL 1.2 mg/dL (0.2-1.0); POTASSIUM 3.5 mmol/L (3.5-5.1); TOTAL PROTEIN, SERUM 7.8 g/dL (6.0-8.3)
[2025-04-11 08:42] LABS: INR 1.2 (0.85-1.15); PROTHROMBIN TIME 12.5 SEC (9.6-11.6)
[2025-04-11 08:43] LABS: PARTIAL THROMBOPLASTIN TIME 31.9 SEC (26.3-35.5)
--- NOTE | 2025-04-11 09:00 | NUR ---
U/S GD PARACENTESIS NOT DONE U/S PERFORMED BY Rosemary GRAVES RDMS. IMAGES REVIEWED BY DR ARIZA. PER DR ARIZA NOT ENOUGH FLUID TO PERFORM PROCEDURE SAFELY. PT AND DAUGHTER INFORMED OF OUTCOME. DISCHARGE VIA AMBULATORY. A&O.
--- NOTE | 2025-04-11 11:09 | HMCIMG ---
Ascites SCAN History: Abdominal distention FINDINGS: There is a minimal amount of ascitic fluid. It is not enough for ultrasound-guided paracentesis. IMPRESSION: Minimal ascites, not enough for ultrasound-guided paracentesis.
== END | disposition home or self-care (01) ==
LOC: RAH 07:51
PROVIDERS: ATTEND Internal Medicine Gastroenterology
DX: R18.8 Other ascites (principal); Z51.81 Encounter for therapeutic drug level monitoring
CPT/HCPCS: 36415; 76705; 80053; 85025; 85610; 85730